=== PATIENT | female | born 2000 | race Caucasian/White ===

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

== ENCOUNTER 2020-01-01 18:32 | Emergency (ER) | payer OTHER ==
[~2020-01-01] VITALS: Ht 162.5 cm; Wt 52.2 kg
== END 2020-01-01 20:37 | disposition home or self-care (01) ==
LOC: ED 18:32
DX: S16.1XXA Strain of muscle, fascia and tendon at neck level, initial encounter (principal); K21.9 Gastro-esophageal reflux disease without esophagitis; F41.9 Anxiety disorder, unspecified; F32.9 Major depressive disorder, single episode, unspecified; Z79.899 Other long term (current) drug therapy; Y08.89XA Assault by other specified means, initial encounter; Y93.89 Activity, other specified; Y92.89 Other specified places as the place of occurrence of the external cause; Y99.8 Other external cause status

== ENCOUNTER 2022-12-13 15:06 | Emergency (ER) | payer OTHER ==
[~2022-12-13] VITALS: Ht 165.1 cm; Wt 77.1 kg
[2022-12-13] MEDS ORDERED: SEPTDS PO (16:00)
== END 2022-12-13 16:17 | disposition home or self-care (01) ==
LOC: ED 15:06
DX: L03.116 Cellulitis of left lower limb (principal)

== ENCOUNTER 2024-12-25 14:24 | Emergency (ER) | payer OTHER ==
[~2024-12-25] VITALS: Ht 160 cm; Wt 54.5 kg
[~2024-12-25 14:24] MED LIST changes: +SEPTDS PO
[2024-12-25] MEDS ORDERED: methylPREDNISolone sod succ 125 MG VIAL IM ONE (14:55)
[2024-12-25] MEDS ORDERED: PREDNISONE50 MG PO (14:55)
[2024-12-25] MEDS ORDERED: METHOCARBAMOL500 M1 PO (14:55)
[2024-12-25] MEDS ORDERED: METHOCARBAMOL 500 MG TAB PO ONE (14:55)
== END 2024-12-25 15:03 | disposition home or self-care (01) ==
LOC: ED 14:24
DX: S16.1XXA Strain of muscle, fascia and tendon at neck level, initial encounter (principal); K21.9 Gastro-esophageal reflux disease without esophagitis; F41.9 Anxiety disorder, unspecified; M54.6 Pain in thoracic spine; F32.A Depression, unspecified; X50.1XXA Overexertion from prolonged static or awkward postures, initial encounter; Y93.89 Activity, other specified; Y92.89 Other specified places as the place of occurrence of the external cause; Y99.8 Other external cause status